=== PATIENT | male | born 1975 | race Caucasian/White ===

== ENCOUNTER 2017-10-25 12:10 | Emergency (ER) | payer OTHER ==
[~2017-10-25] VITALS: Ht 175.3 cm; Wt 74.8 kg
[2017-10-25 12:17] VITALS: BP 156/88
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
== END 2017-10-25 13:32 ==
LOC: ERH 12:10
DX: M25.522 Pain in left elbow (principal)
CPT/HCPCS: 73080-LT